=== PATIENT | female | born 1990 | race Caucasian/White ===

== ENCOUNTER 2018-08-08 19:38 | Emergency (ER) | payer OTHER ==
[2018-08-08 21:29] LABS: ADD MAN DIFF? NO
[2018-08-08 21:31] LABS: WHITE BLOOD COUNT 5.9 10^3/ul (4.8-10.8)
[2018-08-08 21:31] LABS: BASOPHILS % 0.2 % (0.0-2.0); EOSINOPHILS # 0.1 10^3/ul (0.0-0.5); EOSINOPHILS % 1.9 % (0.0-7.0); HEMATOCRIT 39.9 % (37.0-47.0); HEMOGLOBIN 12.7 g/dl (12.0-16.0); LYMPHOCYTES # 1.6 10^3/ul (0.8-2.9); MEAN CORPUSCULAR HEMOGLOBIN 27.7 pg (29.0-33.0); MEAN CORPUSCULAR HGB CONC 31.8 g/dl (32.0-37.0); MEAN CORPUSCULAR VOLUME 86.9 fl (82.0-101.0); MEAN PLATELET VOLUME 10.4 fl (7.4-10.4); MONOCYTE # 0.5 10^3/ul (0.3-0.9); MONOCYTES % 8.4 % (0.0-11.0); NEUTROPHIL # 3.6 10^3/ul (1.6-7.5); NEUTROPHILS % 61.2 % (39.0-77.0); PLATELET COUNT 214 10^3/UL (140-415); RED BLOOD COUNT 4.59 10^6/ul (4.20-5.40); RED CELL DISTRIBUTION WIDTH 13.5 % (11.5-14.5)
[2018-08-08] MEDS: KETOROLAC 15 MG INJ IV (21:40)
[2018-08-08] MEDS: MAGNESIUM CITRATE 300 ML BTL PO (21:40)
[2018-08-08] MEDS: SOD CHLORIDE 0.9% 1,000 ML IV (21:43)
[2018-08-08 21:50] LABS: ALANINE AMINOTRANSFERASE 24 IU/L (13-69); ALBUMIN 4.5 g/dl (3.3-4.9); ALBUMIN/GLOBULIN RATIO 1.21; ALKALINE PHOSPHATASE 100 IU/L (42-121); ANION GAP 9 (5-13); ASPARTATE AMINO TRANSFERASE 28 IU/L (15-46); BILIRUBIN,INDIRECT 0.6 mg/dl (0-1.1); BILIRUBIN,TOTAL 0.6 mg/dl (0.2-1.3); BLOOD UREA NITROGEN 14 mg/dl (7-20); CALCIUM 9.1 mg/dl (8.4-10.2); CARBON DIOXIDE 29 mmol/L (21-31); CHLORIDE 106 mmol/L (97-110); CREATININE 0.71 mg/dl (0.44-1.00); Estimated GFR > 60 mL/min (>60); GLUCOSE 105 mg/dl (70-220); LIPASE 116 U/L (23-300); SODIUM 144 mmol/L (135-144); TOTAL PROTEIN 8.2 g/dl (6.1-8.1)
[2018-08-08 21:51] LABS: INR 0.99; PROTIME 13.2 Sec (11.9-14.9)
[2018-08-08 21:52] LABS: PARTIAL THROMBOPLASTIN TIME 28.3 Sec (23.0-35.0)
[2018-08-08 22:08] LABS: ADD UMIC YES; UR ASCORBIC ACID NEGATIVE (NEGATIVE); UR BACTERIA FEW /HPF (NONE SEEN); UR BILIRUBIN (Dip) NEGATIVE (NEGATIVE); UR BLOOD (Dip) 2+ mg/dL (NEGATIVE); UR CLARITY SLIGHTLY CLOUDY (CLEAR); UR COLOR YELLOW (YELLOW); UR GLUCOSE (Dip) NEGATIVE (NEGATIVE); UR KETONES (Dip) NEGATIVE (NEGATIVE); UR LEUKOCYTE ESTERASE (Dip) 1+ Leu/ul (NEGATIVE); UR MUCUS MODERATE /HPF (NONE SEEN); UR NITRITE (Dip) NEGATIVE (NEGATIVE); UR RBC 26 /HPF (0-5); UR SPECIFIC GRAVITY (Dip) 1.017 (1.003-1.030); UR SQUAMOUS EPITHELIAL CELL FEW /HPF (FEW); UR TOTAL PROTEIN (Dip) NEGATIVE (NEGATIVE); UR UROBILINOGEN (Dip) NEGATIVE (NEGATIVE); UR WBC 17 /HPF (0-5)
== END 2018-08-08 23:06 | disposition home or self-care (01) ==
LOC: FTE 19:38
DX: N30.01 Acute cystitis with hematuria (principal)
CPT/HCPCS: 36415; 74176; 80053; 81001; 81025; 83690; 85025; 85610; 85730; 96361; 96374; 99285-25

== ENCOUNTER 2018-09-05 18:50 | Inpatient (IN) | payer OTHER ==
[2018-09-05 19:39] LABS: ADD MAN DIFF? NO
[2018-09-05 19:40] LABS: BASOPHILS % 0.1 % (0.0-2.0); HEMATOCRIT 31.7 % (37.0-47.0); HEMOGLOBIN 10.2 g/dl (12.0-16.0); LYMPHOCYTES # 0.6 10^3/ul (0.8-2.9); LYMPHOCYTES % 6.8 % (15.0-51.0); MEAN CORPUSCULAR HEMOGLOBIN 26.9 pg (29.0-33.0); MEAN CORPUSCULAR HGB CONC 32.2 g/dl (32.0-37.0); MEAN CORPUSCULAR VOLUME 83.6 fl (82.0-101.0); MEAN PLATELET VOLUME 9.7 fl (7.4-10.4); MONOCYTE # 0.5 10^3/ul (0.3-0.9); MONOCYTES % 5.1 % (0.0-11.0); NEUTROPHIL # 8.1 10^3/ul (1.6-7.5); NEUTROPHILS % 87.8 % (39.0-77.0); PLATELET COUNT 207 10^3/UL (140-415); RED BLOOD COUNT 3.79 10^6/ul (4.20-5.40); RED CELL DISTRIBUTION WIDTH 13.4 % (11.5-14.5)
[2018-09-05 19:40] LABS: WHITE BLOOD COUNT 9.2 10^3/ul (4.8-10.8)
[2018-09-05 19:59] LABS: ALANINE AMINOTRANSFERASE 14 IU/L (13-69); ALBUMIN 3.7 g/dl (3.3-4.9); ALKALINE PHOSPHATASE 91 IU/L (42-121); ANION GAP 23 (5-13); ASPARTATE AMINO TRANSFERASE 11 IU/L (15-46); BILIRUBIN,INDIRECT 0.2 mg/dl (0-1.1); BILIRUBIN,TOTAL 0.2 mg/dl (0.2-1.3); BLOOD UREA NITROGEN 109 mg/dl (7-20); CALCIUM 8.8 mg/dl (8.4-10.2); CHLORIDE 107 mmol/L (97-110); GLUCOSE 114 mg/dl (70-220); SODIUM 139 mmol/L (135-144); TOTAL PROTEIN 7.4 g/dl (6.1-8.1)
[2018-09-05 20:02] LABS: INR 1.35; PROTIME 16.8 Sec (11.9-14.9); PT RATIO 1.3
[2018-09-05 20:06] LABS: CREATININE 20.18 mg/dl (0.44-1.00); Estimated GFR 2 mL/min (>60)
[2018-09-05 20:08] LABS: CARBON DIOXIDE 9 mmol/L (21-31); POTASSIUM 6.5 mmol/L (3.5-5.1)
[2018-09-05 20:09] LABS: B-TYPE NATRIURETIC PEPTIDE 5160 PG/ML (0-125); TROPONIN-I 0.021 ng/ml (0.000-0.120)
[2018-09-05 20:13] LABS: PARTIAL THROMBOPLASTIN TIME 31.6 Sec (23.0-35.0)
[2018-09-05] MEDS ORDERED: DEXTROSE 50% 50 ML SYRINGE IV (20:30)
[2018-09-05] MEDS: DEXTROSE 50% 50 ML SYRINGE IV (20:35)
[2018-09-05] MEDS: INSULIN REGULAR, HUMAN 100 UNIT/1 ML 3ML VIAL IVP (20:39)
[2018-09-05] MEDS: NA BICARBONATE 8.4% 50 ML SYG IV (20:40)
[2018-09-05] MEDS: CA CHLORIDE 10% 10 ML SYRINGE IV (20:57)
[2018-09-05] MEDS: SODIUM POLYSTYRENE 15 GM KIT (POWDER + SORBITOL) PO (21:16)
[2018-09-05 21:20] LABS: AADO2 Arterial 611.9 mmHg (7.0-24.0); Allen Test ACCEPTAB; Arterial Base Excess -13.1 mmol/L (-3.0-3); Arterial COHb 0.3 % (0.0-3.0); Arterial Fraction of Oxyhgb 93.4 % (93.0-99.0); Arterial HCO3 11.5 mmol/L (22.0-26.0); Arterial MetHb 0.3 % (0.0-1.5); Arterial pCO2 23.3 mmhg (35-45); MODE HFNC; Site Left Radial
[2018-09-05] MEDS ORDERED: ONDANSETRON 4 MG INJ IV (22:00)
[2018-09-05] MEDS ORDERED: ACETAMINOPHEN 325 MG TAB PO ×2 (22:00→22:30)
[2018-09-05] MEDS ORDERED: ALBUTEROL/IPRATROPIUM (NEB) 3 ML AMP HHN (22:30)
[2018-09-05] MEDS ORDERED: NACL 0.9% 3 ML SYG IV (22:30)
[2018-09-05] MEDS ORDERED: hydrALAzine 20 MG INJ IV (22:30)
[2018-09-05] MEDS ORDERED: NITROGLYCERIN (SL) 0.4 MG TAB SL (22:30)
[2018-09-05] MEDS ORDERED: DOCUSATE SODIUM 100 MG CAP PO (22:30)
[2018-09-05 23:03] LABS: HEMOGLOBIN A1C 5.3 % (0-5.9)
[2018-09-05 23:18] LABS: FREE T4 (FREE THYROXINE) 1.33 ng/dl (0.79-2.35)
[2018-09-05] MEDS: SOD CHLORIDE 0.9% 1,000 ML IV (23:42)
[2018-09-05] MEDS: FUROSEMIDE 40 MG INJ IV (23:43)
[2018-09-05 23:50] LABS: ADD UMIC YES; UR ASCORBIC ACID NEGATIVE (NEGATIVE); UR BACTERIA FEW /HPF (NONE SEEN); UR BILIRUBIN (Dip) NEGATIVE (NEGATIVE); UR BLOOD (Dip) 3+ mg/dL (NEGATIVE); UR CLARITY SLIGHTLY CLOUDY (CLEAR); UR COLOR YELLOW (YELLOW); UR GLUCOSE (Dip) NEGATIVE (NEGATIVE); UR KETONES (Dip) TRACE mg/dL (NEGATIVE); UR LEUKOCYTE ESTERASE (Dip) NEGATIVE Leu/ul (NEGATIVE); UR NITRITE (Dip) NEGATIVE (NEGATIVE); UR RBC > 182 /HPF (0-5); UR SPECIFIC GRAVITY (Dip) 1.009 (1.003-1.030); UR SQUAMOUS EPITHELIAL CELL FEW /HPF (FEW); UR TOTAL PROTEIN (Dip) NEGATIVE (NEGATIVE); UR UROBILINOGEN (Dip) NEGATIVE (NEGATIVE); UR WBC 6 /HPF (0-5)
[2018-09-05 23:51] LABS: SODIUM,URINE RANDOM 110 mmol/L (30-90)
[2018-09-05 23:51] LABS: CREATININE,URINE RANDOM 65.59 mg/dl (20-320)
[2018-09-06] MEDS: morphine 2 MG INJ IV ×3 (01:06→14:24)
[2018-09-06] MEDS: ONDANSETRON 4 MG INJ IV (01:06)
[2018-09-06] MEDS: LORAZEPAM 2 MG INJ IV (01:58)
[2018-09-06] MEDS: LABETALOL HCL 20MG INJ IV (02:42)
[2018-09-06 03:01] LABS: LACTIC ACID 2.4 mmol/L (0.5-2.0)
[2018-09-06 05:36] LABS: WHITE BLOOD COUNT 12.3 10^3/ul (4.8-10.8)
[2018-09-06 05:36] LABS: ABNORMAL IP MESSAGE 1; ADD MAN DIFF? NO; BASOPHILS % 0.1 % (0.0-2.0); HEMATOCRIT 39.5 % (37.0-47.0); HEMOGLOBIN 12.8 g/dl (12.0-16.0); LYMPHOCYTES # 0.6 10^3/ul (0.8-2.9); LYMPHOCYTES % 4.6 % (15.0-51.0); MEAN CORPUSCULAR HEMOGLOBIN 26.2 pg (29.0-33.0); MEAN CORPUSCULAR HGB CONC 32.4 g/dl (32.0-37.0); MEAN CORPUSCULAR VOLUME 80.9 fl (82.0-101.0); MEAN PLATELET VOLUME 10.1 fl (7.4-10.4); MONOCYTE # 0.5 10^3/ul (0.3-0.9); MONOCYTES % 3.7 % (0.0-11.0); NEUTROPHIL # 11.2 10^3/ul (1.6-7.5); NEUTROPHILS % 91.3 % (39.0-77.0); PLATELET COUNT 273 10^3/UL (140-415); RED BLOOD COUNT 4.88 10^6/ul (4.20-5.40); RED CELL DISTRIBUTION WIDTH 13.3 % (11.5-14.5)
[2018-09-06 05:55] LABS: POSITIVE DIFF @See below
[2018-09-06 06:19] LABS: ANION GAP 22 (5-13); BLOOD UREA NITROGEN 79 mg/dl (7-20); CALCIUM 11.8 mg/dl (8.4-10.2); CARBON DIOXIDE 16 mmol/L (21-31); CHLORIDE 106 mmol/L (97-110); Estimated GFR 5 mL/min (>60); GLUCOSE 187 mg/dl (70-220); MAGNESIUM 1.9 mg/dl (1.7-2.5); PHOSPHORUS 8.7 mg/dl (2.5-4.9); POTASSIUM 4.6 mmol/L (3.5-5.1); SODIUM 144 mmol/L (135-144)
[2018-09-06 06:25] LABS: CHOLESTEROL 181 mg/dl (100-200)
[2018-09-06 06:25] LABS: CHOL/HDL RATIO 4.2 RATIO; HDL CHOLESTEROL 43 mg/dl (33-83); LDL CHOLESTEROL,CALCULATED 122 mg/dl; TRIGLYCERIDES 82 mg/dl (0-149)
[2018-09-06] MEDS ORDERED: LEVALBUTEROL (NEB) 1.25 MG/0.5 ML AMP HHN (09:30)
[2018-09-06 09:37] LABS: LACTIC ACID 1.3 mmol/L (0.5-2.0)
[2018-09-06 10:24] LABS: LIPASE 104 U/L (23-300)
[2018-09-06] MEDS: CEFEPIME 1GM/50 ML (PMX) 50 ML IVPB ×2 (11:21→20:44)
[2018-09-06 14:03] LABS: ANION GAP 13 (5-13); BLOOD UREA NITROGEN 51 mg/dl (7-20); CALCIUM 10.2 mg/dl (8.4-10.2); CARBON DIOXIDE 25 mmol/L (21-31); CHLORIDE 105 mmol/L (97-110); CREATININE 3.08 mg/dl (0.44-1.00); Estimated GFR 18 mL/min (>60); GLUCOSE 207 mg/dl (70-220); POTASSIUM 4.6 mmol/L (3.5-5.1); SODIUM 143 mmol/L (135-144)
[2018-09-06 14:06] LABS: LACTIC ACID 2.3 mmol/L (0.5-2.0)
[2018-09-06] MEDS: IPRATROPIUM (NEB) 0.5 MG/2.5 ML AMP HHN ×2 (14:40→19:26)
[2018-09-06] MEDS: LEVALBUTEROL (NEB) 1.25 MG/0.5 ML AMP HHN ×2 (14:40→19:27)
[2018-09-06] MEDS: SOD CHLORIDE 0.9% 1,000 ML IV (14:44)
[2018-09-06] MEDS: HYDROCODONE/APAP (5/325) TAB PO (14:55)
[2018-09-06] MEDS: BUDESONIDE (NEB) 0.5MG/2ML AMP HHN (19:27)
[2018-09-07] MEDS: morphine 2 MG INJ IV ×2 (01:08→01:09)
[2018-09-07] MEDS: LORAZEPAM 2 MG INJ IV (01:19)
[2018-09-07] MEDS: LEVALBUTEROL (NEB) 1.25 MG/0.5 ML AMP HHN ×4 (01:39→19:54)
[2018-09-07 06:06] LABS: ADD MAN DIFF? NO
[2018-09-07 06:33] LABS: BASOPHILS % 0.3 % (0.0-2.0); EOSINOPHILS # 0.1 10^3/ul (0.0-0.5); EOSINOPHILS % 1.2 % (0.0-7.0); HEMATOCRIT 35.6 % (37.0-47.0); HEMOGLOBIN 11.4 g/dl (12.0-16.0); LYMPHOCYTES # 0.8 10^3/ul (0.8-2.9); LYMPHOCYTES % 11.1 % (15.0-51.0); MEAN CORPUSCULAR HEMOGLOBIN 26.7 pg (29.0-33.0); MEAN CORPUSCULAR VOLUME 83.4 fl (82.0-101.0); MEAN PLATELET VOLUME 10.3 fl (7.4-10.4); MONOCYTE # 0.7 10^3/ul (0.3-0.9); NEUTROPHIL # 5.9 10^3/ul (1.6-7.5); NEUTROPHILS % 78.1 % (39.0-77.0); PLATELET COUNT 184 10^3/UL (140-415); RED BLOOD COUNT 4.27 10^6/ul (4.20-5.40); RED CELL DISTRIBUTION WIDTH 13.2 % (11.5-14.5)
[2018-09-07 06:33] LABS: WHITE BLOOD COUNT 7.5 10^3/ul (4.8-10.8)
[2018-09-07 07:15] LABS: MAGNESIUM 1.6 mg/dl (1.7-2.5)
[2018-09-07 07:15] LABS: PHOSPHORUS 3.1 mg/dl (2.5-4.9)
[2018-09-07 07:34] LABS: ANION GAP 9 (5-13); BLOOD UREA NITROGEN 23 mg/dl (7-20); CALCIUM 9.3 mg/dl (8.4-10.2); CARBON DIOXIDE 27 mmol/L (21-31); CHLORIDE 104 mmol/L (97-110); CREATININE 0.81 mg/dl (0.44-1.00); Estimated GFR > 60 mL/min (>60); GLUCOSE 109 mg/dl (70-220); POTASSIUM 4.5 mmol/L (3.5-5.1); SODIUM 140 mmol/L (135-144)
[2018-09-07] MEDS: BUDESONIDE (NEB) 0.5MG/2ML AMP HHN ×2 (07:47→19:54)
[2018-09-07] MEDS: IPRATROPIUM (NEB) 0.5 MG/2.5 ML AMP HHN ×3 (07:47→19:54)
[2018-09-07] MEDS: MAGNESIUM SULFATE 2 GM/50 ML 50 ML IVPB (08:10)
[2018-09-07] MEDS: FUROSEMIDE 40 MG INJ IV (08:10)
[2018-09-07] MEDS: CEFEPIME 1GM/50 ML (PMX) 50 ML IVPB ×3 (08:11→21:09)
[2018-09-07] MEDS: HYDROCODONE/APAP (5/325) TAB PO (21:06)
[2018-09-08] MEDS: LEVALBUTEROL (NEB) 1.25 MG/0.5 ML AMP HHN ×4 (01:25→21:32)
[2018-09-08 05:49] LABS: ADD MAN DIFF? NO
[2018-09-08 06:17] LABS: BASOPHILS % 0.1 % (0.0-2.0); EOSINOPHILS # 0.4 10^3/ul (0.0-0.5); EOSINOPHILS % 5.3 % (0.0-7.0); HEMATOCRIT 37.5 % (37.0-47.0); HEMOGLOBIN 11.6 g/dl (12.0-16.0); LYMPHOCYTES # 1.9 10^3/ul (0.8-2.9); LYMPHOCYTES % 26.3 % (15.0-51.0); MEAN CORPUSCULAR HEMOGLOBIN 26.4 pg (29.0-33.0); MEAN CORPUSCULAR HGB CONC 30.9 g/dl (32.0-37.0); MEAN CORPUSCULAR VOLUME 85.2 fl (82.0-101.0); MEAN PLATELET VOLUME 10.3 fl (7.4-10.4); MONOCYTE # 0.8 10^3/ul (0.3-0.9); MONOCYTES % 10.7 % (0.0-11.0); NEUTROPHIL # 4.2 10^3/ul (1.6-7.5); NEUTROPHILS % 57.3 % (39.0-77.0); PLATELET COUNT 191 10^3/UL (140-415); RED CELL DISTRIBUTION WIDTH 12.8 % (11.5-14.5)
[2018-09-08 06:17] LABS: WHITE BLOOD COUNT 7.4 10^3/ul (4.8-10.8)
[2018-09-08 06:39] LABS: PHOSPHORUS 3.7 mg/dl (2.5-4.9)
[2018-09-08 06:39] LABS: MAGNESIUM 2.1 mg/dl (1.7-2.5)
[2018-09-08] MEDS: CEFEPIME 1GM/50 ML (PMX) 50 ML IVPB ×3 (06:52→22:04)
[2018-09-08 07:15] LABS: ANION GAP 9 (5-13); BLOOD UREA NITROGEN 21 mg/dl (7-20); CALCIUM 9.1 mg/dl (8.4-10.2); CARBON DIOXIDE 31 mmol/L (21-31); CHLORIDE 99 mmol/L (97-110); CREATININE 0.78 mg/dl (0.44-1.00); Estimated GFR > 60 mL/min (>60); GLUCOSE 103 mg/dl (70-220); POTASSIUM 4.4 mmol/L (3.5-5.1); SODIUM 139 mmol/L (135-144)
[2018-09-08] MEDS: BUDESONIDE (NEB) 0.5MG/2ML AMP HHN ×2 (08:30→21:31)
[2018-09-08] MEDS: IPRATROPIUM (NEB) 0.5 MG/2.5 ML AMP HHN ×3 (08:30→21:31)
[2018-09-08] MEDS: HYDROCODONE/APAP (5/325) TAB PO ×2 (10:40→22:04)
[2018-09-08 12:19] LABS: CREATINE KINASE 229 IU/L (23-200)
[2018-09-08 14:57] LABS: CREATININE, RANDOM URINE 71 mg/dL (20-275); MICROALBUMIN 3.8 mg/dL; MICROALBUMIN/CREATININE RATIO 54 (<30)
[2018-09-09] MEDS: LEVALBUTEROL (NEB) 1.25 MG/0.5 ML AMP HHN ×4 (02:05→20:36)
[2018-09-09 05:16] LABS: ADD MAN DIFF? NO
[2018-09-09 05:32] LABS: BASOPHILS % 0.2 % (0.0-2.0); EOSINOPHILS # 0.5 10^3/ul (0.0-0.5); EOSINOPHILS % 8.3 % (0.0-7.0); LYMPHOCYTES # 1.8 10^3/ul (0.8-2.9); LYMPHOCYTES % 27.3 % (15.0-51.0); MEAN CORPUSCULAR HEMOGLOBIN 26.2 pg (29.0-33.0); MEAN CORPUSCULAR HGB CONC 31.4 g/dl (32.0-37.0); MEAN CORPUSCULAR VOLUME 83.3 fl (82.0-101.0); MEAN PLATELET VOLUME 10.9 fl (7.4-10.4); MONOCYTE # 0.6 10^3/ul (0.3-0.9); NEUTROPHIL # 3.5 10^3/ul (1.6-7.5); PLATELET COUNT 208 10^3/UL (140-415); RED CELL DISTRIBUTION WIDTH 12.7 % (11.5-14.5)
[2018-09-09 05:32] LABS: WHITE BLOOD COUNT 6.4 10^3/ul (4.8-10.8)
[2018-09-09 05:34] LABS: ANION GAP 8 (5-13); BLOOD UREA NITROGEN 16 mg/dl (7-20); CALCIUM 8.3 mg/dl (8.4-10.2); CARBON DIOXIDE 29 mmol/L (21-31); CHLORIDE 103 mmol/L (97-110); CREATININE 0.62 mg/dl (0.44-1.00); Estimated GFR > 60 mL/min (>60); GLUCOSE 111 mg/dl (70-220); POTASSIUM 3.7 mmol/L (3.5-5.1); SODIUM 140 mmol/L (135-144)
[2018-09-09] MEDS: CEFEPIME 1GM/50 ML (PMX) 50 ML IVPB ×3 (06:27→21:18)
[2018-09-09] MEDS: BUDESONIDE (NEB) 0.5MG/2ML AMP HHN ×2 (08:43→20:36)
[2018-09-09] MEDS: IPRATROPIUM (NEB) 0.5 MG/2.5 ML AMP HHN ×3 (08:43→20:36)
[2018-09-09] MEDS: HYDROCODONE/APAP (5/325) TAB PO ×2 (13:59→21:21)
[2018-09-09] MEDS: morphine 2 MG INJ IV (15:17)
[2018-09-09] MEDS: BETHANECHOL 25 MG TAB PO (21:18)
[2018-09-10] MEDS: LEVALBUTEROL (NEB) 1.25 MG/0.5 ML AMP HHN ×3 (01:58→15:40)
[2018-09-10] MEDS: IPRATROPIUM (NEB) 0.5 MG/2.5 ML AMP HHN ×2 (01:58→09:38)
[2018-09-10] MEDS: CEFEPIME 1GM/50 ML (PMX) 50 ML IVPB ×3 (05:53→21:12)
[2018-09-10 06:26] LABS: ADD MAN DIFF? NO
[2018-09-10 06:40] LABS: BASOPHILS % 0.1 % (0.0-2.0); EOSINOPHILS # 0.3 10^3/ul (0.0-0.5); EOSINOPHILS % 4.9 % (0.0-7.0); HEMATOCRIT 34.1 % (37.0-47.0); HEMOGLOBIN 10.6 g/dl (12.0-16.0); LYMPHOCYTES # 1.4 10^3/ul (0.8-2.9); LYMPHOCYTES % 21.1 % (15.0-51.0); MEAN CORPUSCULAR HEMOGLOBIN 25.9 pg (29.0-33.0); MEAN CORPUSCULAR HGB CONC 31.1 g/dl (32.0-37.0); MEAN CORPUSCULAR VOLUME 83.4 fl (82.0-101.0); MONOCYTE # 0.6 10^3/ul (0.3-0.9); MONOCYTES % 9.3 % (0.0-11.0); NEUTROPHIL # 4.3 10^3/ul (1.6-7.5); NEUTROPHILS % 64.5 % (39.0-77.0); PLATELET COUNT 213 10^3/UL (140-415); RED BLOOD COUNT 4.09 10^6/ul (4.20-5.40); RED CELL DISTRIBUTION WIDTH 12.4 % (11.5-14.5)
[2018-09-10 06:40] LABS: WHITE BLOOD COUNT 6.7 10^3/ul (4.8-10.8)
[2018-09-10 07:07] LABS: ANION GAP 8 (5-13); BLOOD UREA NITROGEN 19 mg/dl (7-20); CALCIUM 8.8 mg/dl (8.4-10.2); CARBON DIOXIDE 27 mmol/L (21-31); CHLORIDE 103 mmol/L (97-110); CREATININE 0.67 mg/dl (0.44-1.00); Estimated GFR > 60 mL/min (>60); GLUCOSE 92 mg/dl (70-220); POTASSIUM 3.6 mmol/L (3.5-5.1); SODIUM 138 mmol/L (135-144)
[2018-09-10] MEDS: BETHANECHOL 25 MG TAB PO ×3 (08:12→20:53)
[2018-09-10] MEDS: MAGNESIUM HYDROXIDE 30ML CUP PO (08:22)
[2018-09-10] MEDS: BUDESONIDE (NEB) 0.5MG/2ML AMP HHN (09:38)
[2018-09-10] MEDS ORDERED: SENNA TAB PO (16:30)
[2018-09-11 06:51] LABS: ADD MAN DIFF? NO
[2018-09-11] MEDS: CEFEPIME 1GM/50 ML (PMX) 50 ML IVPB ×3 (06:54→21:36)
[2018-09-11 06:59] LABS: BASOPHILS % 0.4 % (0.0-2.0); EOSINOPHILS # 0.4 10^3/ul (0.0-0.5); HEMOGLOBIN 10.6 g/dl (12.0-16.0); LYMPHOCYTES # 1.5 10^3/ul (0.8-2.9); LYMPHOCYTES % 27.6 % (15.0-51.0); MEAN CORPUSCULAR HEMOGLOBIN 25.7 pg (29.0-33.0); MEAN CORPUSCULAR HGB CONC 30.3 g/dl (32.0-37.0); MEAN CORPUSCULAR VOLUME 84.7 fl (82.0-101.0); MEAN PLATELET VOLUME 10.8 fl (7.4-10.4); MONOCYTE # 0.6 10^3/ul (0.3-0.9); MONOCYTES % 10.1 % (0.0-11.0); NEUTROPHIL # 3.1 10^3/ul (1.6-7.5); NEUTROPHILS % 54.7 % (39.0-77.0); PLATELET COUNT 245 10^3/UL (140-415); RED BLOOD COUNT 4.13 10^6/ul (4.20-5.40); RED CELL DISTRIBUTION WIDTH 12.5 % (11.5-14.5)
[2018-09-11 06:59] LABS: WHITE BLOOD COUNT 5.6 10^3/ul (4.8-10.8)
[2018-09-11 07:11] LABS: ANION GAP 9 (5-13); BLOOD UREA NITROGEN 18 mg/dl (7-20); CARBON DIOXIDE 29 mmol/L (21-31); CHLORIDE 104 mmol/L (97-110); CREATININE 0.66 mg/dl (0.44-1.00); Estimated GFR > 60 mL/min (>60); GLUCOSE 101 mg/dl (70-220); POTASSIUM 3.9 mmol/L (3.5-5.1); SODIUM 142 mmol/L (135-144)
[2018-09-11] MEDS: BETHANECHOL 25 MG TAB PO ×3 (09:04→20:42)
[2018-09-11] MEDS: HYDROCODONE/APAP (5/325) TAB PO (20:42)
[2018-09-12] MEDS: CEFEPIME 1GM/50 ML (PMX) 50 ML IVPB (05:46)
[2018-09-12 06:09] LABS: ADD MAN DIFF? NO
[2018-09-12 06:13] LABS: BASOPHILS % 0.2 % (0.0-2.0); EOSINOPHILS # 0.4 10^3/ul (0.0-0.5); EOSINOPHILS % 8.1 % (0.0-7.0); HEMATOCRIT 32.5 % (37.0-47.0); LYMPHOCYTES # 1.3 10^3/ul (0.8-2.9); LYMPHOCYTES % 29.1 % (15.0-51.0); MEAN CORPUSCULAR HEMOGLOBIN 25.8 pg (29.0-33.0); MEAN CORPUSCULAR HGB CONC 30.8 g/dl (32.0-37.0); MEAN PLATELET VOLUME 10.8 fl (7.4-10.4); MONOCYTE # 0.5 10^3/ul (0.3-0.9); MONOCYTES % 11.7 % (0.0-11.0); NEUTROPHIL # 2.2 10^3/ul (1.6-7.5); NEUTROPHILS % 50.7 % (39.0-77.0); PLATELET COUNT 220 10^3/UL (140-415); RED BLOOD COUNT 3.87 10^6/ul (4.20-5.40); RED CELL DISTRIBUTION WIDTH 12.4 % (11.5-14.5)
[2018-09-12 06:13] LABS: WHITE BLOOD COUNT 4.4 10^3/ul (4.8-10.8)
[2018-09-12 06:43] LABS: ANION GAP 7 (5-13); BLOOD UREA NITROGEN 17 mg/dl (7-20); CALCIUM 8.4 mg/dl (8.4-10.2); CARBON DIOXIDE 28 mmol/L (21-31); CHLORIDE 106 mmol/L (97-110); CREATININE 0.56 mg/dl (0.44-1.00); Estimated GFR > 60 mL/min (>60); GLUCOSE 95 mg/dl (70-220); POTASSIUM 3.9 mmol/L (3.5-5.1); SODIUM 141 mmol/L (135-144)
[2018-09-12] MEDS: BETHANECHOL 25 MG TAB PO ×3 (08:49→21:18)
[2018-09-13 05:56] LABS: ADD MAN DIFF? NO
[2018-09-13 05:57] LABS: BASOPHILS % 0.4 % (0.0-2.0); EOSINOPHILS # 0.3 10^3/ul (0.0-0.5); EOSINOPHILS % 6.1 % (0.0-7.0); HEMATOCRIT 31.5 % (37.0-47.0); HEMOGLOBIN 9.8 g/dl (12.0-16.0); LYMPHOCYTES # 1.1 10^3/ul (0.8-2.9); LYMPHOCYTES % 24.2 % (15.0-51.0); MEAN CORPUSCULAR HEMOGLOBIN 26.1 pg (29.0-33.0); MEAN CORPUSCULAR HGB CONC 31.1 g/dl (32.0-37.0); MEAN PLATELET VOLUME 10.2 fl (7.4-10.4); MONOCYTE # 0.5 10^3/ul (0.3-0.9); MONOCYTES % 9.7 % (0.0-11.0); NEUTROPHIL # 2.8 10^3/ul (1.6-7.5); NEUTROPHILS % 59.4 % (39.0-77.0); PLATELET COUNT 245 10^3/UL (140-415); RED BLOOD COUNT 3.75 10^6/ul (4.20-5.40); RED CELL DISTRIBUTION WIDTH 12.3 % (11.5-14.5)
[2018-09-13 05:57] LABS: WHITE BLOOD COUNT 4.7 10^3/ul (4.8-10.8)
[2018-09-13 06:43] LABS: ANION GAP 6 (5-13); BLOOD UREA NITROGEN 10 mg/dl (7-20); CALCIUM 8.7 mg/dl (8.4-10.2); CARBON DIOXIDE 28 mmol/L (21-31); CHLORIDE 107 mmol/L (97-110); CREATININE 0.47 mg/dl (0.44-1.00); Estimated GFR > 60 mL/min (>60); GLUCOSE 94 mg/dl (70-220); SODIUM 141 mmol/L (135-144)
[2018-09-13] MEDS: BETHANECHOL 25 MG TAB PO ×3 (08:33→20:57)
== END 2018-09-13 21:36 | disposition home or self-care (01) | DRG 698 ==
LOC: ICU 21:43 → E/R 18:50 → 6WM 09-08 18:38
DX: N13.9 Obstructive and reflux uropathy, unspecified (principal); J96.01 Acute respiratory failure with hypoxia; G92 Toxic encephalopathy; J18.9 Pneumonia, unspecified organism; J90 Pleural effusion, not elsewhere classified; N17.9 Acute kidney failure, unspecified; E87.2 Acidosis; N13.30 Unspecified hydronephrosis; I50.32 Chronic diastolic (congestive) heart failure; E87.5 Hyperkalemia; R00.0 Tachycardia, unspecified; H91.3 Deaf nonspeaking, not elsewhere classified; D64.9 Anemia, unspecified; I16.0 Hypertensive urgency; E83.89 Other disorders of mineral metabolism; R93.3 Abnormal findings on diagnostic imaging of other parts of digestive tract; R33.9 Retention of urine, unspecified; I11.0 Hypertensive heart disease with heart failure
CPT/HCPCS: 36415; 36600; 71045; 72158; 72196; 74176; 76775; 76830; 76856; 80048; 80053; 80061; 80307; 81001; 81003; 82043; 82550; 82803; 82962; 83036; 83605; 83690; 83735; 83880; 84100; 84155; 84300; 84439; 84443; 84484; 84703; 85025; 85610; 85730; 87040-91; 87081; 87086; 93005; 93306; 94640; 94664; 96374; 96375; 97110; 97116; 97161; 97530; 99285-25